=== PATIENT | male | born 1990 | race Asian ===

== ENCOUNTER 2018-08-30 01:53 | Emergency (ER) | payer OTHER ==
[~2018-08-30] VITALS: Ht 180.3 cm; Wt 91.3 kg
--- NOTE | 2018-08-30 02:25 | NUR ---
Pt BIBSELF FROM HOME. C/O INABILITY TO CATCH HIS BREATH. Pt IS A/OX4, VERBAL, ABLE TO MAKE NEEDS KNOWN. O2 SAT ON RA 100%. DENIES ANY CP. Pt IS AFEBRILE. NO S/S OF ACUTE DISTRESS OR SOB NOTED AT THIS TIME. Pt BEING SEEN BY MD AT BEDSIDE.
[2018-08-30 02:41] LABS: BASOPHILS # (AUTO) 0.1 /CMM (0.0-0.2); BASOPHILS % (AUTO) 0.5 % (0.0-2.0); EOSINOPHILS % (AUTO) 1.2 % (0.0-6.0); HEMATOCRIT 47 % (39-51); HEMOGLOBIN 15.3 g/dL (13.5-17.5); LYMPHOCYTES % (AUTO) 26.9 % (20.0-44.0); MEAN CORPUSCULAR HGB CONC 33 g/dl (31.0-36.0); MEAN CORPUSCULAR VOLUME 80 fL (80-96); MONOCYTES # (AUTO) 0.7 /CMM (0.1-1.30); MONOCYTES % (AUTO) 6.1 % (2.0-12.0); NEUTROPHILS # (AUTO) 7.3 /CMM (1.8-8.9); NEUTROPHILS % (AUTO) 65.3 % (43.0-81.0); PLATELET COUNT (AUTO) 197 /CMM (150-450); RED BLOOD CELL COUNT(AUTO) 5.86 MIL/uL (4.5-6.0); WHITE BLOOD COUNT (AUTO) 11.2 K/uL (4.3-11.0)
[2018-08-30 02:46] LABS: CALCIUM, SERUM 9.3 mg/dL (8.5-10.1); CARBON DIOXIDE 29 mmol/L (21-32); CHLORIDE 103 mmol/L (98-107); CREATININE 1.3 mg/dL (0.6-1.3); GLUCOSE 94 mg/dL (74-106); POTASSIUM 3.8 mmol/L (3.5-5.1); SODIUM SERUM 140 mmol/L (136-145); UREA NITROGEN, BLOOD 15 mg/dL (7-18)
--- NOTE | 2018-08-30 03:07 | NUR ---
CXR BEING DONE AT BEDSIDE
[2018-08-30 03:16] LABS: D-DIMER 0.3 mg/L(FEU (0.17-0.50)
--- NOTE | 2018-08-30 04:15 | NUR ---
Patient discharged to home in stable condition. Written and verbal after care instructions given. Patient verbalizes understanding of instruction. Patient left facility on foot with steady gait. No s/s of acute distress or sob noted. No iv access on pt. Gave pt a Dr's note to excuse him from work till 08/31/18.
[2018-08-30 04:22] VITALS: BP 125/70
== END 2018-08-30 04:28 | disposition home or self-care (01) ==
LOC: ER 01:58
DX: R06.02 Shortness of breath (principal); R51 Headache; F12.90 Cannabis use, unspecified, uncomplicated; Z98.890 Other specified postprocedural states
CPT/HCPCS: 36415; 71045; 80048; 84484; 85025; 85378; 85730; 93005; 99284; A4606; Z7610